=== PATIENT | male | born 1995 | race Caucasian/White ===

== ENCOUNTER 2016-06-15 20:41 | Emergency (ER) | payer OTHER ==
[2016-06-15 21:28] LABS: BILIRUBIN NEGATIVE (NEGATIVE); BLOOD NEGATIVE Ery/uL (NEGATIVE); CLARITY CLEAR (CLEAR); COLOR STRAW (YELLOW); GLUCOSE (U) NORMAL (NORMAL); KETONE (U) NEGATIVE (NEGATIVE); LEUKOCYTES NEGATIVE Leu/uL (NEGATIVE); NITRITE NEGATIVE (NEGATIVE); PROTEIN NEGATIVE (NEGATIVE); SPECIFIC GRAVITY 1.015 (1.001-1.030); UROBILINOGEN 0.2 mg/dL (0.2-1.0)
[2016-06-15 21:45] LABS: BASOPHIL 0.9 % (0-2); EOSINOPHIL 0.9 % (0-5); HGB 14.5 g/dl (13.2-18.0); LYMPHOCYTE 34.4 % (15-48); MCH 30.6 pg (25.0-31.0); MCHC 34.5 g/dL (32.0-36.0); MCV 88.6 fL (78.0-100.0); MONOCYTE 10.4 % (0-12); MPV 8.8 fL (6.0-9.5); NEUTROPHIL 53.4 % (41-80); PLT 280 K/uL (150-400); RBC 4.74 M/uL (4.70-6.00); RDW 12.2 % (11.5-14.0); WBC 4.4 K/uL (4.0-10.5)
[2016-06-15 22:28] LABS: ALBUMIN 4.6 g/dL (3.5-5.0); BILIRUBIN - TOTAL 0.2 mg/dL (0.1-1.0); CREATININE 0.7 mg/dL (0.7-1.2); GLOBULIN (CALCULATION) 2.8 g/dL (2.2-4.2); POTASSIUM 3.8 mmol/L (3.5-5.1); TOTAL PROTEIN 7.4 g/dL (6.4-8.3)
== END 2016-06-16 00:40 | disposition home or self-care (01) ==
LOC: FER 20:41
PROVIDERS: Emergency Medicine
DX: R10.84 Generalized abdominal pain (principal); R19.7 Diarrhea, unspecified; R11.0 Nausea; R82.90 Unspecified abnormal findings in urine; Z88.0 Allergy status to penicillin
CPT/HCPCS: 36415; 80053; 81003; 83690; 85025; 87088; 99284